=== PATIENT | female | born 1935 | race Caucasian/White ===

== ENCOUNTER 2024-08-17 13:36 | Emergency (ER) | payer BC ==
[~2024-08-17] VITALS: Ht 170.2 cm; Wt 66.0 kg
[2024-08-17 13:49] VITALS: O2SAT 97
[2024-08-17 14:38] LABS: BASOPHILS % 0.9 % (0.0-2.0); EOSINOPHILS % 0.7 % (0.0-5.0); HEMATOCRIT. 44.0 % (36.0-48.0); HEMOGLOBIN. 14.7 g/dL (12.0-16.0); LYMPHOCYTES % 18.5 % (20.0-50.0); MEAN PLATELET VOLUME 8.6 fl (7.4-10.4); MONOCYTES % 9.5 % (2.0-8.0); NEUTROPHILS % 70.4 % (40.0-76.0); PLATELET 158 x1000/uL (130-400); RED BLOOD CELL COUNT 4.93 mill/uL (4.2-5.4); RED CELL DISTRIBUTION WIDTH 14.8 % (11.6-14.6)
[2024-08-17 14:54] LABS: CREATININE 1.0 mg/dL (0.6-1.0); UREA NITROGEN BLOOD 22 mg/dL (9-23)
[2024-08-17 14:55] LABS: TROPONIN I HIGH SENSITIVITY 8 ng/L (3.0-34)
[2024-08-17 15:50] VITALS: BP 180/94; PULSE 68; RESP 14; TEMP 36.9; O2SAT 98
== END 2024-08-17 16:10 | disposition home or self-care (01) ==
LOC: ER 13:36
DX: R42 Dizziness and giddiness (principal)
CPT/HCPCS: 36415; 80048; 84484; 85025; 99284